=== PATIENT | female | born 1930 | race Caucasian/White ===

== ENCOUNTER 2016-09-29 21:41 | Emergency (ER) | payer MEDICARE ==
[2016-09-29] MEDS ORDERED: AZITHROMYCIN 250 MG TAB ONE (23:49)
== END 2016-09-29 23:59 | disposition home or self-care (01) ==
LOC: ER 21:41
DX: J20.9 Acute bronchitis, unspecified (principal); I25.10 Atherosclerotic heart disease of native coronary artery without angina pectoris; Z95.5 Presence of coronary angioplasty implant and graft; I10 Essential (primary) hypertension
CPT/HCPCS: 71020; 93005